=== PATIENT | male | born 1965 | race Caucasian/White ===

== ENCOUNTER → 2023-10-19 06:17 | Outpatient (REF) | payer BC, SELFPAY ==
[2023-10-19 08:06] LABS: HDL Cholesterol 99 mg/dl; LDL Cholesterol, Calculated 92 mg/dl; Total Cholesterol 205 mg/dl (50-199); Triglyceride 72 mg/dl (10-149); Very Low Density Lipoprotein 14 mg/dl (0-30)
== END ==
LOC: REG 06:17
PROVIDERS: ATTENDING PHYSICIAN Internal Medicine; FAMILY PHYSICIAN Family Medicine
DX: Q23.1 Congenital insufficiency of aortic valve (principal); I35.1 Nonrheumatic aortic (valve) insufficiency
CPT/HCPCS: 36415; 80061

== ENCOUNTER → 2024-07-11 06:20 | Outpatient (REF) | payer BC, SELFPAY ==
[2024-07-11 07:07] LABS: % Basophils 0.4 % (0-2); % Eosinophils 3.3 % (0-6); % Immature Granulocytes 0.4 % (0-0.5); % Lymphocytes 39.1 % (20.5-51.1); % Monocytes 13.2 % (1.7-9.3); % Neutrophils 43.6 % (42.2-75.2); Absolute Eosinophils 0.2 10^3/uL (0-0.7); Absolute Monocytes 0.7 10^3/uL (0.1-0.6); Absolute Neutrophils 2.3 10^3/uL (1.4-6.5); Hematocrit 39.2 % (39.0-52.0); Hemoglobin 13.8 g/dL (13.0-18.0); Mean Corp Hgb Conc. 35.2 g/dL (33.0-37.0); Mean Corpuscular Hgb 31.6 pg (27.0-31.0); Mean Corpuscular Volume 89.7 fL (80.0-94.0); Nucleated Red Blood Cells % 0 % (-); Platelet Count 253 10^3/uL (130-400); Red Blood Cell Count 4.37 10^6/uL (4.70-6.10); Red Cell Dist. Width 11.7 % (11.5-14.5); White Blood Cell Count 5.2 10^3/uL (4.8-10.8)
[2024-07-11 07:33] LABS: ALT (SGPT) 39 U/L (0-50); AST (SGOT) 24 U/L (17-59); Albumin 4.5 g/dl (3.5-5.0); Alkaline Phosphatase 54 U/L (38-126); Blood Urea Nitrogen 14 mg/dl (9-20); Calcium 9.3 mg/dl (8.4-10.2); Carbon Dioxide 29 mmol/L (22-30); Chloride 95 mmol/L (98-107); Glucose 96 mg/dl (70-99); HDL Cholesterol 84 mg/dl; LDL Cholesterol, Calculated 106 mg/dl; Potassium 4.4 mmol/L (3.5-5.1); Sodium 130 mmol/L (135-145); Total Bilirubin 0.7 mg/dl (0.2-1.3); Total Cholesterol 209 mg/dl (50-199); Total Protein 7.2 g/dl (6.3-8.2); Triglyceride 95 mg/dl (10-149); Very Low Density Lipoprotein 19 mg/dl (0-30); eGFR > 60.00
[2024-07-11 08:02] LABS: TSH 1.08 uIU/ml (0.47-4.68)
[2024-07-11 12:39] LABS: Glycohemoglobin (HgbA1c) 5.4 % (4.0-5.6)
== END ==
LOC: REG 06:20
PROVIDERS: ATTENDING PHYSICIAN Internal Medicine; FAMILY PHYSICIAN Family Medicine
DX: Q23.1 Congenital insufficiency of aortic valve (principal); I10 Essential (primary) hypertension; E78.00 Pure hypercholesterolemia, unspecified
CPT/HCPCS: 36415; 80053; 80061; 83036; 84443; 85025

== ENCOUNTER → 2024-07-15 14:59 | Outpatient (REF) | payer BC, SELFPAY | LOC: RAD 14:59 | PROVIDERS: ATTENDING PHYSICIAN Internal Medicine; FAMILY PHYSICIAN Family Medicine | DX: Q23.1 Congenital insufficiency of aortic valve (principal); I35.1 Nonrheumatic aortic (valve) insufficiency | CPT/HCPCS: 71260; Q9967 ==

== ENCOUNTER → 2024-07-16 07:03 | Outpatient (REF) | payer BC, SELFPAY | LOC: HWRCS 07:03 | PROVIDERS: ATTENDING PHYSICIAN Internal Medicine; FAMILY PHYSICIAN Family Medicine | DX: Q23.1 Congenital insufficiency of aortic valve (principal); I35.1 Nonrheumatic aortic (valve) insufficiency | CPT/HCPCS: 93306 ==

== ENCOUNTER 2024-11-08 06:06 | Emergency (ER) | payer BC, SELFPAY ==
[2024-11-08 06:10] VITALS: BP 146/86
--- NOTE | 2024-11-08 06:31 | ED.GENMED ---
History of Present Illness
General
Chief Complaint: Back Pain
Time Seen by Provider: 11/08/24 06:15
History of Present Illness
History of Present Illness:
59-year-old male presents the emergency department for evaluation of left-sided low back pain for the past 2 to 3 weeks but acutely worsening in the past 24 hours. Works in the [employer] and was able to make it through his entire day
yesterday with mild pain. Denies any radicular symptoms in the lower extremities or lower urinary tract voiding symptoms, denies any urinary incontinence or retention. Has taken Advil without relief. Denies any recent falls or trauma. No fevers
or chills. Past medical history includes hypertension, on 2 antihypertensives, not on any anticoagulants.
Review of Systems
Review of Systems
Allergies reviewed?: Yes
All Other Systems: ROS reviewed and negative except as documented in HPI and ROS
Phy Exam
Physical Exam
Physical Exam:
GEN: Well appearing, NAD, WDWN
HEENT: Oral mucosa moist, no scleral icterus
Cardiac: Regular rate
Lung: No respiratory distress, no tachypnea
MSK: No gross deformity or injuries. No midline lumbar spine tenderness. Mild reproducible tenderness to left paraspinous musculature. Lumbar range of motion is normal however elicits pain throughout both flexion and extension
Skin: Good color, no pallor or jaundice, no rashes
Neuro: AO x3, moves all extremities freely, bilateral lower extremity strength is 5 out of 5 in all reese, patellar reflexes 2+ bilaterally, sensation to light touch intact and symmetric bilaterally
Psych: Calm, cooperative
Course
Orders/Labs/Results
Orders:
Orders
11/08/24 06:28
Cyclobenzaprine HCl [Flexeril] 10 mg PO NOW STA
Ketorolac [Toradol] 30 mg IM NOW STA
Lidocaine [Lidocaine 4% Patch] 1 patch TOPICAL NOW STA
Apply Lidocaine patch(s) to:: L lumbar
CR Lumbar Spine Comp Min 4 Vw* Urgent
Comment:
Reason For Exam: low back pain
11/08/24 07:50
Oxycodone [Roxicodone] 5 mg PO NOW STA
11/08/24 08:05
Urinalysis Reflex To Culture Urgent
Date Specimen was Collected: 11/08/24
Time Specimen was Collected: 08:00
Urine Microscopic Reflex Cult Urgent
Abnormal Lab Results
11/08/24
08:05
Urine Ketones 3+ A
(Negative)
Ur Occult Blood Reflex 1+ A
(Negative)
Urine Bacteria (Reflex) Few A
(Negative)
Urine Albumin (Reflex) 1+ A
(Neg - Trace)
Vital Signs
Initial and Last Documented VS:
Initial Vital Signs
Pulse Resp BP Pulse Ox
52 20 146/86 97
11/08/24 06:10 11/08/24 06:10 11/08/24 06:10 11/08/24 06:10
Last Documented Vital Signs
Pulse Resp BP Pulse Ox
52 20 146/86 97
11/08/24 06:10 11/08/24 06:10 11/08/24 06:10 11/08/24 06:33
MDM/Problems Addressed
MDM/Problems Addressed:
59-year-old male presents with low back pain without radiculopathy. X-ray shows significant degenerative disc disease and arthritic changes. He has no urinary voiding symptoms or lower extremity paresthesias concerning for neurologic impingement.
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 No occasion for urgent MRI. Discussed supportive care and outpatient management
*Pulse Oximetry
SaO2: 97
Oxygen Mode of Delivery: Room air
Patient hypoxic: no
*Critical Care Note
Total Time (30-74mins, 75-104mins- exclusive of procedures): Not Applicable
Update Note
Update Note:
0745: Reevaluated patient, still reporting severe pain. Will check urinalysis to rule out hematuria to rule out stone for completeness, give oxycodone, likely pain due to severe degenerative disc disease in the low spine
ED Attending Note
-
Portions of this chart may have been created with voice recognition software.� Occasional wrong word or��sound alike� substitutions may have occurred due to the inherent limitations of voice recognition software.
Discharge Plan
Departure
Patient Disposition: Home (Routine Discharge)
Date of Disposition: 11/08/24
Time of Disposition: 08:31
Patient with high blood pressure during this ER visit?: No
Discharge Problem:
Low back pain
Instructions: Low Back Pain (DC)
Prescriptions:
New
methylprednisolone [Medrol (Shaq)] 4 mg tablets,dose pack
See Rx Instructions .ROUTE .COMPLEX Qty: 21 0RF
Rx Instructions:
orally per package directions
oxycodone 5 mg tablet
5 mg PO Q8H PRN (Reason: Pain) Qty: 10 0RF
No Action
multivitamin [Dor-Ahkjmi-Qnbew] 1 EACH tablet
1 ea PO DAILY
ascorbic acid (vitamin C) [Vitamin C] 1,000 MG tablet
1,000 mg PO DAILY
ibuprofen [Advil] 200 MG tablet
400 mg PO PRN (Reason: pain)
Referrals:
Artur Guerra MD [Active, Anesthesiology]
Venancio Arensa MD [Family Provider, Family Practice]
Interventions
Interventions:
*Risk Screen - Suicide Last Done: 11/08/24 06:10
*General Assessment Last Done: 11/08/24 06:10
*Neglect/Abuse Screening Last Done: 11/08/24 06:10
*ED- Fall Risk Assessment Last Done: 11/08/24 06:10
*ED COVID-19 Vaccine History Last Done: 11/08/24 06:10
*Nursing Disposition Last Done: 11/08/24 08:39
ED-Musculoskeletal Assessment Last Done: 11/08/24 08:06
Discharge Date and Time
Discharge Date/Time: 11/08/24 08:42
Print Language: SAMI
[2024-11-08] MEDS: FLEXERIL 10 MG PO (06:38)
[2024-11-08] MEDS: LIDOCAINE 4% PATCH 1 PATCH TOPICAL (06:38)
[2024-11-08] MEDS: TORADOL 30 MG IM (06:38)
[2024-11-08] MEDS: ROXICODONE 5 MG PO (08:02)
[2024-11-08 08:06] VITALS: BMI 25.9
[2024-11-08 08:17] LABS: Urine Albumin 1+ (Neg - Trace); Urine Bilirubin Negative (Negative); Urine Character Clear (Clear); Urine Color Yellow; Urine Glucose Negative (Negative); Urine Ketone 3+ (Negative); Urine Leukocyte Negative (Negative); Urine Nitrite Negative (Negative); Urine Occult Blood 1+ (Negative); Urine Specific Gravity 1.025 (<1.030); Urine Urobilinogen Negative (Neg - 1+)
[2024-11-08 08:25] LABS: Urine Mucus Few
[2024-11-08 08:26] LABS: Urine Squamous Cell 0-2 /LPF (Few)
[2024-11-08 08:27] LABS: Urine Bacteria Few (Negative); Urine Red Blood Cell 0-2 /HPF (0-2)
== END 2024-11-08 08:42 | disposition home or self-care (01) ==
LOC: EMR 06:06
PROVIDERS: Physician Assistant; EMERGENCY PHYSICIAN Emergency Medicine; FAMILY PHYSICIAN Family Medicine
DX: M54.50 Low back pain, unspecified (principal); I10 Essential (primary) hypertension; Z79.899 Other long term (current) drug therapy
CPT/HCPCS: 99283; 96372; 72110; 81003; 81015

== ENCOUNTER 2024-11-11 03:00 | Emergency (ER) | payer BC, SELFPAY ==
[2024-11-11 03:04] VITALS: BP 134/80
[2024-11-11 03:11] VITALS: BP 150/72
[2024-11-11 04:00] VITALS: BP 142/94
[2024-11-11] MEDS: DILAUDID 1 MG IV ×2 (04:22→05:46)
[2024-11-11 04:51] LABS: INR 0.94; PT 12.9 Sec (11.4-14.6)
--- NOTE | 2024-11-11 04:51 | ED.GENMED ---
History of Present Illness
General
Chief Complaint: Back Pain
Time Seen by Provider: 11/11/24 03:35
History of Present Illness
History of Present Illness:
59-year-old male with history of hypertension, hyperlipidemia, thoracic aortic aneurysm presenting to the emergency department for worsening back pain. Patient reports pain primarily to the left lower lumbar back. Denies any known inciting injury
or trauma. He does work with [employer]. He came to the hospital 11/08 for the same symptoms. At that time he had an x-ray that showed degenerative disc disease and was treated with steroids. He also was discharged on oxycodone, however reports that
none the modalities at home have been helping his pain. Denies issues with urination or defecation. Denies chest pain or difficulty breathing. Denies fever. Does note history of back issues in the past, however this feels worse. Denies
additional acute complaints.
Phy Exam
Physical Exam
Physical Exam:
General: Well-appearing, no clinical signs of dehydration, nontoxic. Uncomfortable secondary to pain
HEENT: protecting airway
Neck: appears supple
CV: Normal heart rate, regular rhythm
Resp: No accessory muscle use, no increased work of breathing, lungs clear to auscultation bilaterally
Abd: Soft and non-distended, no tenderness to palpation
Extremities: No deformities, no swelling. Focal tenderness to the left lumbar musculature. No midline tenderness.
Neuro: alert, no focal neurologic deficit
: deferred
Rectal: deferred
Psych: Normal affect
Skin: Intact
Course
Orders/Labs/Results
Orders:
Orders
11/11/24 03:55
Chest/Abd Angio w/wo Contrast CT [CT Chest/abd Angio W/wo Iv Con] Urgent
Comment:
Reason For Exam: severe lower back pain, hx thoracic aneurysm
HYDROmorphone [Dilaudid] 1 mg IV NOW STA
11/11/24 03:56
Electrocardiogram (*1) Stat
Reason for Study: Other
Other Reason for Exam: chest pain
EKG- Treatment ONCE
11/11/24 04:24
Complete Blood Count/With Diff Urgent
Comprehensive Metabolic Panel Urgent
PTT Urgent
Prothrombin Time Urgent
Troponin I Urgent
11/11/24 05:35
HYDROmorphone [Dilaudid] 1 mg IV NOW STA
Ketorolac [Toradol] 15 mg IV NOW STA
Abnormal Lab Results
11/11/24
04:24
RBC 4.63 L 10^6/uL
(4.70-6.10)
MCH 31.3 H pg
(27.0-31.0)
RDW 10.9 L %
(11.5-14.5)
Absolute Neuts (auto) 6.7 H 10^3/uL
(1.4-6.5)
Absolute Monos (auto) 0.8 H 10^3/uL
(0.1-0.6)
Lymphocytes % 17.5 L %
(20.5-51.1)
Sodium 126 L mmol/L
(135-145)
Chloride 93 L mmol/L
(98-107)
Carbon Dioxide 20 L mmol/L
(22-30)
Glucose 117 H mg/dl
(70-99)
Albumin 5.2 H g/dl
(3.5-5.0)
11/11/24 04:24
11/11/24 04:24
Vital Signs
Initial and Last Documented VS:
Initial Vital Signs
Temp Pulse Resp BP Pulse Ox
97.8 F 68 32 134/80 100
11/11/24 03:04 11/11/24 03:04 11/11/24 03:04 11/11/24 03:04 11/11/24 03:04
Last Documented Vital Signs
Temp Pulse Resp BP Pulse Ox
97.8 F 68 32 126/93 97
11/11/24 03:04 11/11/24 03:04 11/11/24 03:04 11/11/24 06:00 11/11/24 06:01
MDM/Problems Addressed
MDM/Problems Addressed:
59-year-old male with history of hypertension presenting for worsening lower back pain. Vital signs on arrival are significant for mild hypertension.
On exam patient is in no acute distress, however is moderately uncomfortable secondary to his pain. Patient is flushed, cannot find position of comfort. On review of patient's chart, imaging from June 2023 shows thoracic aortic aneurysm.
Patient's pain is reproducible on exam, so musculoskeletal back pain is likely diagnosis, however given his level of discomfort, hypotension on arrival, known aortic aneurysm -cannot safely rule out dissection. For this reason we will obtain
laboratory analysis and CT imaging of the chest/abdomen/pelvis. Dilaudid administered for pain. EKG nonischemic. Without present concern for ACS.
06:50 -patient CT is negative. Aneurysm has increased slightly in size, however without any component of dissection or rupture. Patient made aware of this finding. Labs are unremarkable. At this time suspect musculoskeletal component to
patient's pain. Pain has improved. Patient offered admission for pain control versus pain control outpatient. He would prefer to go home with outpatient orthopedic follow-up. Will prescribe muscle relaxer and pain medication. Strict return
precautions communicated and patient verbalized understanding.
*Pulse Oximetry
SaO2: 100
Oxygen Mode of Delivery: Room air
*EKG
Interpreted by ED Provider?: Yes
EKG Intrepretation Date: 11/11/24
EKG Intrepretation Time: 04:55
Interpretation: normal
Comparison EKG: no changes
Heart Rate: 58
Rate: bradycardiac
Rhythm: sinus
[place]: normal axis
Interval: normal interval
QRS Pattern: normal QRS
Ischemia: no ischemia
*Critical Care Note
Total Time (30-74mins, 75-104mins- exclusive of procedures): Not Applicable
ED Attending Note
-
Portions of this chart may have been created with voice recognition software.� Occasional wrong word or��sound alike� substitutions may have occurred due to the inherent limitations of voice recognition software.
Discharge Plan
Departure
Prescriptions:
No Action
multivitamin [Zyp-Vizuby-Ptvfp] 1 EACH tablet
1 ea PO DAILY
ascorbic acid (vitamin C) [Vitamin C] 1,000 MG tablet
1,000 mg PO DAILY
ibuprofen [Advil] 200 MG tablet
400 mg PO PRN PRN (Reason: pain)
methylprednisolone [Medrol (Shaq)] 4 mg tablets,dose pack
See Rx Instructions .ROUTE .COMPLEX Qty: 21 0RF
Rx Instructions:
orally per package directions
oxycodone 5 mg tablet
5 mg PO Q8H PRN (Reason: Pain) Qty: 10 0RF
milk thistle 200 mg Capsule
200 mg PO DAILY
amlodipine 5 mg Tablet
5 mg PO DAILY
lisinopril 5 mg Tablet
5 mg PO DAILY
rosuvastatin 5 mg Tablet
5 mg PO DAILY
mecobalamin (vitamin B12) [B12 Active] 1,000 mcg Tablet,Chewable
1,000 mcg PO DAILY
Referrals:
Venancio Arenas MD [Family Provider, Family Practice]
Interventions
Interventions:
*Risk Screen - Suicide Last Done: 11/11/24 03:40
*General Assessment Last Done: 11/11/24 03:39
*Neglect/Abuse Screening Last Done: 11/11/24 03:39
*ED- Fall Risk Assessment Last Done: 11/11/24 03:39
*ED COVID-19 Vaccine History Last Done: 11/11/24 03:39
ED- Cardiac Assessment Last Done: 11/11/24 05:07
ED-Musculoskeletal Assessment Last Done: 11/11/24 05:07
ED- Pulmonary Assessment Last Done: 11/11/24 05:07
Discharge Date and Time
Print Language: PORTUGUESE
[2024-11-11 04:52] LABS: APTT 23.5 Sec (23.4-35.0)
[2024-11-11 05:04] LABS: ALT (SGPT) 23 U/L (0-50); AST (SGOT) 21 U/L (17-59); Albumin 5.2 g/dl (3.5-5.0); Alkaline Phosphatase 53 U/L (38-126); Blood Urea Nitrogen 11 mg/dl (9-20); Calcium 9.8 mg/dl (8.4-10.2); Carbon Dioxide 20 mmol/L (22-30); Chloride 93 mmol/L (98-107); Glucose 117 mg/dl (70-99); Potassium 4.3 mmol/L (3.5-5.1); Sodium 126 mmol/L (135-145); Total Bilirubin 1.3 mg/dl (0.2-1.3); eGFR > 60.00
[2024-11-11 05:15] LABS: Troponin I < 0.012 ng/ml
[2024-11-11 05:16] LABS: % Basophils 0.1 % (0-2); % Immature Granulocytes 0.4 % (0-0.5); % Lymphocytes 17.5 % (20.5-51.1); % Monocytes 8.6 % (1.7-9.3); % Neutrophils 73.4 % (42.2-75.2); Absolute Lymphocytes 1.6 10^3/uL (1.2-3.4); Absolute Monocytes 0.8 10^3/uL (0.1-0.6); Absolute Neutrophils 6.7 10^3/uL (1.4-6.5); Hematocrit 39.4 % (39.0-52.0); Hemoglobin 14.5 g/dL (13.0-18.0); Mean Corp Hgb Conc. 36.8 g/dL (33.0-37.0); Mean Corpuscular Hgb 31.3 pg (27.0-31.0); Mean Corpuscular Volume 85.1 fL (80.0-94.0); Mean Platelet Volume 9.7 fL (7.4-10.4); Nucleated Red Blood Cells % 0 % (-); Platelet Count 296 10^3/uL (130-400); Red Blood Cell Count 4.63 10^6/uL (4.70-6.10); Red Cell Dist. Width 10.9 % (11.5-14.5); White Blood Cell Count 9.1 10^3/uL (4.8-10.8)
[2024-11-11 05:33] VITALS: BP 132/88
[2024-11-11] MEDS: TORADOL 15 MG IV (05:47)
[2024-11-11 06:00] VITALS: BP 126/93
[2024-11-11 07:00] VITALS: BP 121/85
== END 2024-11-11 07:32 | disposition home or self-care (01) ==
LOC: EMR 03:00
PROVIDERS: EMERGENCY PHYSICIAN Student in an Organized Health Care Education/Training Program; FAMILY PHYSICIAN Family Medicine
DX: M54.50 Low back pain, unspecified (principal); E78.5 Hyperlipidemia, unspecified; I10 Essential (primary) hypertension; I71.20 Thoracic aortic aneurysm, without rupture, unspecified
CPT/HCPCS: 96374; 96375; 96376; 99284; 71275; 74175; 80053; 84484; 85025; 85610; 85730; 93005; Q9967

== ENCOUNTER 2024-11-12 10:26 | Inpatient (IN) | payer BC, SELFPAY ==
[2024-11-11 16:20] VITALS: BP 133/87
[2024-11-11] MEDS: TORADOL 30 MG IV (23:04)
[2024-11-11] MEDS: DECADRON 10 MG IV (23:04)
[2024-11-11] MEDS: DILAUDID 1 MG IV (23:04)
[2024-11-11 23:07] VITALS: BP 137/95; BMI 29.1
--- NOTE | 2024-11-11 23:28 | ED.GENMED ---
History of Present Illness
General
Chief Complaint: Back Pain
Source: patient, previous radiology exam (Lumbar spine x-ray November 08 showing multilevel DJD. CTA chest abdomen pelvis showing ascending thoracic aortic aneurysm at 5 cm slightly increased in size from 4.7 cm but no evidence of dissection. No
abdominal aortic aneurysm. No kidney stone. Multilevel lumbar DJD.) and previous hospital records (Recent ED visits for very similar complaint November 08 and then again this morning)
Time Seen by Provider: 11/11/24 22:08
History of Present Illness
History of Present Illness:
This is a 59-year-old gentleman who has history of lumbar DJD with previous exacerbations and had initially done well with physical therapy 2013. More recently over the past several weeks he has had increased in low back pain primarily left low
back pain and was evaluated in this ED November 08 with severe left low back pain, not radiating. Lumbar spine x-rays revealed moderate multilevel DJD but no evidence of fracture. Discharged to home with Medrol Dosepak as well as a small prescription
for oxycodone 5 mg. He has continued with significant left low back pain, worsening over the past several days and was reevaluated in this ED this morning with severe left low back pain that radiates to his left lateral flank. He has known history
of thoracic aortic aneurysm and underwent CTA of the chest abdomen pelvis that showed ascending thoracic aortic aneurysm that 5 cm slightly increased in size from 4.7 cm previously but no evidence of dissection. No acute intra-abdominal process.
Note of multilevel lumbar DJD. Moderate improvement in pain after IV Dilaudid but continued with significant pain and was offered admission but declined at that time. He was discharged to home with prescription for Flexeril as well as Percocet for
which she took 1 of each at 3 PM. He has had no significant relief and left low back pain has worsening since.
He has not had a fever nor chills. No fall. No difficulty moving his bowels or bladder.
Low back pain is much worse with movement, improves mildly with lying still but he reports intermittent spasms of severe pain primarily left low back but radiates across his entire lower back.
His initial appointment with pain management is not until mid November.
Past History
Past History
ED Past Medical History: HTN and Other (Lumbar DJD)
ED Past Surgical History: Orthopedic (Right knee)
Social History
Tobacco: Non-smoker
Drug: None
Personal:
Living: with family
Employment: Employed
Family History
Family History: Other (Noncontributory)
Phy Exam
Physical Exam
Physical Exam:
GENERAL: 59-year-old gentleman appears his stated age, awake and alert, appears in moderate distress related to pain. Resistant to move and intermittently wincing in pain, intermittently hyperventilating.
EYE: pupils equal. anicteric
NECK: Supple, nontender, no meningismus, no significant adenopathy.
ENT: oral mucosa is moist. No rhinorrhea.
CARDIAC: Regular rate and rhythm. no murmur.
LUNGS: Clear breath sounds bilaterally, no acute respiratory distress, no wheezes/rales/rhonchi
ABDOMEN: Rotund,Soft, nondistended, without focal tenderness, no r/g, no cvat. normoactive BS.
BACK: No midline bony tenderness. Moderate tenderness left paralumbar region with palpable muscle spasm left paralumbar region. Straight leg raising mildly positive on the left. Moderately restricted truncal/lumbar range of motion related to pain.
NEUROLOGICAL: Alert and oriented x3, no focal neuro deficits. Motor strength is 5/5 bilaterally. Gross sensation is intact.
SKIN: Warm and dry, normal color, skin intact. No rash.
MUSCULOSKELETAL: No C/C/E. peripheral pulses are full and equal b/l. No palpable tenderness.
PSYCH: Moderately anxious related to pain. Cooperative.
Course
Orders/Labs/Results
Orders:
Orders
11/11/24 22:21
Dexamethasone Sod Phosphate [Decadron] 10 mg IV NOW STA
HYDROmorphone [Dilaudid] 1 mg IV NOW STA
Ketorolac [Toradol] 30 mg IV NOW STA
11/11/24 23:47
Acetaminophen 1000MG/100Ml [Ofirmev] 1,000 mg in 100 ml IV ONCE
Acetaminophen IV Indication:: ED Narcotic Naive Pt-ONCE
Lidocaine [Lidocaine 4% Patch] 1 patch TOPICAL NOW STA
Apply Lidocaine patch(s) to:: LEFT LOW BACK
11/12/24 00:22
Admit/Transfer Patient As Directed
Co-Sign Provider:
Level of Care: Observation services
Assign to:: Medical/Surgical
Physician / Group: David
Diagnosis: ambulatory dysfunction
PRN Pain Medication Management As Directed
May give lesser potent ordered pain med per pt: Yes
preference::
Protocol:: Medication orders for pain may be administered in a
manner that supports deferring to patient preference
when the pt is:
- Requesting an ordered lesser potent pain medication.
Least to most potent pain medications are defined
as: acetaminophen < NSAID < tramadol < opioids
(morphine, oxycodone, hydromorphone).
- Requesting a lesser dose of the same medication IF
ORDERED.
- Requesting a less intrusive route of administration
if both routes are prescribed by the provider (PO <
IV).
11/12/24 00:24
Code Status As Directed
Resuscitation Status: Full Code
Vital Signs
Initial and Last Documented VS:
Initial Vital Signs
Temp Pulse Resp BP Pulse Ox
98 F 80 16 133/87 99
11/11/24 16:20 11/11/24 16:20 11/11/24 16:20 11/11/24 16:20 11/11/24 16:20
Last Documented Vital Signs
Temp Pulse Resp BP Pulse Ox
98 F 67 15 128/88 89
11/11/24 16:20 11/12/24 00:26 11/12/24 00:26 11/12/24 00:00 11/12/24 00:15
MDM/Problems Addressed
Differential Diagnosis Includes:
Patient presents with ongoing, progressive, intractable low back pain. History of lumbar DJD with remote history of exacerbations over 10 years ago.
No previous instrumentation nor injections. No history of fever. No history of trauma.
No radicular signs or symptoms. No saddle anesthesia, no difficulty moving bowels or bladder thus at this point no indication for emergent MRI.
He is noted to have significant low back pain, appears moderately uncomfortable and at this point has clearly failed current outpatient medication management.
Will medicate for pain with IV Dilaudid, Toradol as well as an IV dose of Decadron.
Laboratory studies early this morning show mild hyponatremia, somewhat similar to previous June 2024. Otherwise labs are unremarkable. At this point no indication to repeat.
Chronic conditions affecting care: HTN and Other (Lumbar DJD)
Acute Exacerbation and/or Progression of Chronic Illness: Other (Lumbar DJD)
*Pulse Oximetry
SaO2: 100
Oxygen Mode of Delivery: Room air
Patient hypoxic: no
*Critical Care Note
Total Time (30-74mins, 75-104mins- exclusive of procedures): Not Applicable
ED Attending Note
-
Portions of this chart may have been created with voice recognition software.� Occasional wrong word or��sound alike� substitutions may have occurred due to the inherent limitations of voice recognition software.
Discharge Plan
Departure
Patient Disposition: Admit
Date of Disposition: 11/11/24
Time of Disposition: 23:53
Admit to: Med/Surg
Admit to doctor: David
Presentation/result/management discussed w/ accepting MD/DO: Hospitalist
Discharge Problem:
Intractable low back pain, acute exacerbation of lumbar DJD
Interventions
Interventions:
*Risk Screen - Suicide Last Done: 11/11/24 16:21
*Neglect/Abuse Screening Last Done: 11/11/24 16:21
ED-Musculoskeletal Assessment Last Done: 11/11/24 20:24
[2024-11-12] VITALS: BP 128/88
--- NOTE | 2024-11-12 00:04 | HPS.HSE ---
Family Physician
-
Family Physician: Venancio Arenas
Chief Complaint
-
Back pain
History of Present Illness
Patient is a 59-year-old with past medical history of low back pain with lumbar degenerative joint disease who presents to the emergency department with several weeks of increasing low back pain.
Patient has been dealing with this for several weeks now and was in the emergency department on November 08 for severe left low back pain that was nonradiating. X-rays at that time revealed multilevel DJD but no acute fractures dislocations noted. He
was discharged on medical management. He has continued to have low back pain worsening over the last few days. And now radiates to his lateral left flank. He denies any dysuria. He denies any materia. There has been no fevers or chills. There
is no incontinence of the bowel or bladder. There is no saddle anesthesia.
He denies any abdominal pain nausea vomiting or diarrhea.
Seen in the emergency department earlier today and had moderate improvement, was offered admission but decided to go home. He had continued pain and discomfort despite taking pain medications at home so he returned to the emergency department. He
reports intermittent spasms, severe pain primarily left low back. He has a pain
In the emergency department the patient was afebrile blood pressure was 157/90 with a pulse of 65 and she was satting at 100%.
CBC was unremarkable. Electrolytes notable for a sodium of 126 but otherwise electrolytes unremarkable. BUN/creatinine normal. Glucose normal.
CT chest abdomen pelvis with angiogram showing 5 cm ascending aortic fusiform aneurysm. Previously 4.7 cm. No abdominal aortic aneurysm. No aortic dissection. No pulmonary embolism. No evidence of pneumonia, pneumothorax, or effusion. No acute
inflammatory process within the abdomen or pelvis. No vertebral compression deformity.
Medical History
Past Medical History
Past Medical History: Reports Other
Additional Past Medical History:
TAA
Past Surgical History: Reports Other
Social History
Tobacco: Smoker
Alcohol: None
Drug: None
Employment: Not Employed
Family History
Family History: Not pertinent
Allergies / Home Medications
Allergies reflects when Allergies were last updated in [facility].
Home Medications with original date entered in [facility]
Allergy/Medication List:
Allergies
Allergy/AdvReac Type Severity Reaction Status Date / Time
Cephalosporins Allergy Rash Verified 11/11/24 03:05
gadobutrol (From Gadavist) Allergy Rash Verified 11/11/24 03:05
penicillin V Allergy Rash Verified 11/11/24 03:05
Penicillins Allergy Rash Verified 11/11/24 03:05
Home Medications
ascorbic acid (vitamin C) 1,000 mg tablet (Vitamin C) 1,000 mg PO DAILY 05/22/09
ibuprofen 200 mg tablet (Advil) 400 mg PO PRN PRN pain 05/22/09
multivitamin (Awb-Twwjvi-Xqlom tablet) 1 ea PO DAILY 05/22/09
methylprednisolone 4 mg tablets in a dose pack (Medrol (Shaq)) See Rx Instructions PO .COMPLEX #21 ea 11/08/24
oxycodone 5 mg tablet 5 mg PO Q8H PRN Pain #10 tabs 11/08/24
amlodipine 5 mg tablet 5 mg PO DAILY 11/11/24
cyclobenzaprine 10 mg tablet 10 mg PO TIDPRN PRN muscle spasm #15 tabs 11/11/24
lisinopril 5 mg tablet 5 mg PO DAILY 11/11/24
mecobalamin (vitamin B12) 1,000 mcg chewable tablet (B12 Active) 1,000 mcg PO DAILY 11/11/24
milk thistle 200 mg capsule 200 mg PO DAILY 11/11/24
oxycodone-acetaminophen 5 mg-325 mg tablet (Percocet) 1 tab PO Q8H PRN Pain #10 tabs 11/11/24
rosuvastatin 5 mg tablet 5 mg PO DAILY 11/11/24
Review of Systems
-
Constitutional: Reports No Symptoms
EENT: Reports No Symptoms
Respiratory: Reports No Symptoms
Cardiac: Reports No Symptoms
Abdomen/GI: Reports No Symptoms
: Reports No Symptoms
Musculoskeletal: Reports No Symptoms
Skin: Reports No Symptoms
Neurological: Reports No Symptoms
Endocrine: Reports No Symptoms
Hematologic/Lymphatic: Reports No Symptoms
Psych: Reports No Symptoms
Physical Exam
Vital Signs
Vital Signs
Temp Pulse Resp BP Pulse Ox
98 F 65 22 137/95 100
11/11/24 16:20 11/11/24 23:07 11/11/24 23:07 11/11/24 23:07 11/11/24 23:31
Physical Exam
General: Well Developed, Well Nourished and Pain
HEENT: NormoCephalic, Moist mucous membranes and Atraumatic
Respiratory: Clear
Cardiac: S1/S2 and Regular Rhythm; No Murmur or Rub
GI: Soft, Non Tender, Non Distended and Normal Bowel Sounds; No Organomegaly
Rectal: Deferred by Provider
Musculoskeletal: No Clubbing, No Cyanosis and No Edema
Skin: No Rash
Neuro: Nonfocal/grossly intact
Data Reviewed
-
CT Scan: Report Reviewed by me
Lab Data: Labs Reviewed by me
Old Records: Reviewed
Impression/Plan
-
IMPRESSION:
59-year-old with exacerbation of low back pain. History of known degenerative joint disease. He has no alarm findings. No radicular findings on history and physical examination.
PLAN:
LBP with ambulatory dysfunction
- admit to med/surg observation
- pain control with toradol and prn dilaudid
- topical agent
- continue medrol dose shaq
- PT evaluation
DVT PPX - SCDs
Code status - Full Code
[2024-11-12] MEDS: LIDOCAINE 4% PATCH 1 PATCH TOPICAL ×2 (00:05→21:00)
[2024-11-12] MEDS: OFIRMEV 100 IV (00:06)
[2024-11-12 01:12] VITALS: BP 128/86; BMI 28.1
--- NOTE | 2024-11-12 01:35 | PTCARENOTE ---
Rec'd pt from ER. Walked from stretcher to bed. complains of pain in left lower back. states it feels a bit better than earlier. NSS started at 125ml per order. oriented to room, call yusuf in reach
[2024-11-12] MEDS: NSS 1000 IV ×2 (01:47→08:24)
[2024-11-12] MEDS: TORADOL 10 MG IV ×2 (01:52→08:23)
[2024-11-12] MEDS: DILAUDID 0.5 MG IV ×2 (03:29→09:34)
[2024-11-12] MEDS: FLEXERIL 10 MG PO ×3 (05:26→21:00)
[2024-11-12] MEDS: MEDROL 4 MG PO ×4 (05:26→23:04)
[2024-11-12 07:10] VITALS: BP 132/85
[2024-11-12 08:02] LABS: Blood Urea Nitrogen 15 mg/dl (9-20); Calcium 9.1 mg/dl (8.4-10.2); Carbon Dioxide 20 mmol/L (22-30); Chloride 97 mmol/L (98-107); Estimated Creatinine Clearance 112 ml/min; Glucose 131 mg/dl (70-99); Potassium 4.5 mmol/L (3.5-5.1); Sodium 127 mmol/L (135-145); eGFR > 60.00
[2024-11-12] MEDS: ZESTRIL 5 MG PO (08:22)
[2024-11-12] MEDS: CRESTOR 5 MG PO (08:22)
[2024-11-12] MEDS: NORVASC 5 MG PO (08:22)
[2024-11-12] MEDS: ROXICODONE 5 MG PO (08:23)
--- NOTE | 2024-11-12 10:27 | W.PN.HOSP.TC ---
Today's Communication/Plan
-
See plan
Assessment / Plan
Assessment / Plan
Impression/plan
Severe lower back pain with ambulatory dysfunction suspect secondary to herniated disc.
Afebrile.
No focal findings on neurologic exam.
Normal white count.
Check MRI of the lumbar spine.
Analgesic control with oxycodone, Tylenol, Flexeril. Continue oral steroids
Physical therapy evaluation
Hyponatremia sodium 127.
Suspect SIADH in the settings of severe pain
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
Urine sodium
Urine osmolarity
TSH
Free water restriction
Stop IV fluids
Avoid NSAIDs
Essential hypertension.
Continue lisinopril and Norvasc
Bicuspid aortic valve
Aortic insufficiency.
CT angiogram in ED with findings of
Ascending thoracic aortic aneurysm measuring 5 cm, previous measuring 4.7 cm. No dissection. The heart is normal in size. Trace anterior pericardial effusion, slightly increased. Minimal fluid within superior pericardial recess, unchanged.
No acute findings.
Outpatient cardiology follow-up
Anticipated Discharge: 24 - 48 hours
Subjective/Interval History
-
Date of Service: November 12, 2024
Objective Data
-
Labs:
Laboratory Results
11/12/24
06:34
Sodium 127 L
Potassium 4.5
Chloride 97 L
Carbon Dioxide 20 L
BUN 15
Creatinine 0.7
Glucose 131 H
Calcium 9.1
Vital Signs:
Vital Signs
Temp Pulse Resp BP Pulse Ox
97.8 F 91 16 155/88 97
11/12/24 07:10 11/12/24 08:22 11/12/24 07:10 11/12/24 08:22 11/12/24 07:10
I&O
11/11/24 11/12/2411/13/25
06:59 06:59 06:59
Intake Total 240 / 240
Balance 240 / 240
Physical Exam
-
General: Well Developed and No Apparent Distress
HEENT: Normocephalic, Atraumatic and Moist Mucous Membranes
Respiratory: Clear to Auscultation
Cardiac: Regular Rhythm and S1/S2; Negative Murmur, Rub or Gallop
GI: Soft, Nontender, Nondistended and Normal Bowel Sounds; Negative Organomegaly
Rectal: Deferred by Provider
Musculoskeletal: No Clubbing, No Cyanosis and No Edema
Skin: Negative Rash
Neuro: Nonfocal/Grossly Intact
--- NOTE | 2024-11-12 10:48 | W.PN.HOSP.TC ---
Today's Communication/Plan
-
Interventional radiology for CLAUDIA
Continue current analgesic regimen
Continue corticosteroids
Monitor sodium
Free water restriction
Bowel regimen
Assessment / Plan
Assessment / Plan
Impression/plan
Severe lower back pain with ambulatory dysfunction suspect secondary to herniated disc.
Afebrile.
No focal findings on neurologic exam.
Normal white count.
MRI of the lumbar spine
Multilevel degenerative changes of the lumbar spine as detailed, worst at L4-5 where disc and facet disease contribute to moderate to severe spinal canal and neural foraminal stenosis at this level. Findings are slightly progressed compared to prior
remote exam 09/24/2013.
Pain remains persistent with severe ambulatory dysfunction
Consult interventional radiology for CLAUDIA
Analgesic control with oxycodone, Tylenol, Flexeril. Continue oral steroids
Physical therapy evaluation
Hyponatremia sodium 127.
Suspect SIADH in the settings of severe pain
Urine osmolarity at 300 consistent with high ADH state
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
TSH suppressed likely reflecting ongoing corticosteroid therapy
Urine sodium
Free water restriction
Stop IV fluids
Avoid NSAIDs
Essential hypertension.
Continue lisinopril and Norvasc
Bicuspid aortic valve
Aortic insufficiency.
CT angiogram in ED with findings of
Ascending thoracic aortic aneurysm measuring 5 cm, previous measuring 4.7 cm. No dissection. The heart is normal in size. Trace anterior pericardial effusion, slightly increased. Minimal fluid within superior pericardial recess, unchanged.
No acute findings.
Outpatient cardiology follow-up
Anticipated Discharge: 24 - 48 hours
Subjective/Interval History
-
Date of Service: November 12, 2024
Objective Data
-
Labs:
Laboratory Results
11/12/24
06:34
Sodium 127 L
Potassium 4.5
Chloride 97 L
Carbon Dioxide 20 L
BUN 15
Creatinine 0.7
Glucose 131 H
Calcium 9.1
Vital Signs:
Vital Signs
Temp Pulse Resp BP Pulse Ox
97.8 F 91 16 155/88 97
11/12/24 07:10 11/12/24 08:22 11/12/24 07:10 11/12/24 08:22 11/12/24 07:10
I&O
11/11/24 11/12/24 11/13/24
06:59 06:59 06:59
Intake Total 240 / 240
Balance 240 / 240
Physical Exam
-
General: Well Developed and No Apparent Distress
HEENT: Normocephalic, Atraumatic and Moist Mucous Membranes
Respiratory: Clear to Auscultation
Cardiac: Regular Rhythm and S1/S2; Negative Murmur, Rub or Gallop
GI: Soft, Nontender, Nondistended and Normal Bowel Sounds; Negative Organomegaly
Rectal: Deferred by Provider
Musculoskeletal: No Clubbing, No Cyanosis and No Edema
Skin: Negative Rash
Neuro: Nonfocal/Grossly Intact
[2024-11-12 11:51] LABS: TSH 0.24 uIU/ml (0.47-4.68)
[2024-11-12 12:05] VITALS: BP 134/90; PULSE 93; O2SAT 97
[2024-11-12 12:23] LABS: Urine Sodium 20 mmol/L (30-90)
[2024-11-12] MEDS: ROXICODONE 10 MG PO ×2 (12:25→18:02)
--- NOTE | 2024-11-12 14:49 | CM ---
Met with patient and his at bedside to obtain information for assessment. Patient stated that he lives with his in a two story house with two steps to enter. Patient is independent with his ADLs, personal care, dressing and bathing. He can
cook, clean, do principal process engineer, and do laundry. He drives and can get to his appointments and do his own shopping. Right now he is limited due to pain and his has been supportive when she is home. Patient has never had VN services. He has not
been to a SNF.
Patient has a prescription plan and uses, [facility] in [place] for all of her medications.
Patient's PCP is, Venancio Arenas.
Patient stated that he will most likely f/u with outpatient rehab when he is cleared for discharge as he is independent.
Plan: Case management will continue to follow and assist with discharge planning. Home with when stable.
[2024-11-12 15:00] VITALS: BP 113/77
[2024-11-12] MEDS: TYLENOL 1000 MG PO ×2 (16:29→21:00)
[2024-11-12 17:27] LABS: Osmolality Urine 306 mOsm/kg (300-900)
[2024-11-12] MEDS: SENOKOT-S 1 TABLET PO (22:22)
[2024-11-12 23:17] VITALS: BP 116/77
[2024-11-13] MEDS: MEDROL 4 MG PO ×3 (06:09→16:35)
[2024-11-13 07:25] VITALS: BP 129/86
[2024-11-13 08:11] LABS: Blood Urea Nitrogen 17 mg/dl (9-20); Calcium 8.9 mg/dl (8.4-10.2); Carbon Dioxide 22 mmol/L (22-30); Chloride 99 mmol/L (98-107); Estimated Creatinine Clearance 98 ml/min; Glucose 101 mg/dl (70-99); Potassium 4.3 mmol/L (3.5-5.1); Sodium 128 mmol/L (135-145); eGFR > 60.00
[2024-11-13] MEDS: TYLENOL 1000 MG PO ×3 (08:17→21:12)
[2024-11-13] MEDS: FLEXERIL 10 MG PO ×3 (08:17→21:12)
[2024-11-13] MEDS: CRESTOR 5 MG PO (08:17)
[2024-11-13] MEDS: SENOKOT-S 1 TABLET PO (08:17)
[2024-11-13] MEDS: NORVASC 5 MG PO (08:17)
[2024-11-13] MEDS: ZESTRIL 5 MG PO (08:17)
[2024-11-13] MEDS: MIRALAX 17 GRAMS PO (11:58)
[2024-11-13] MEDS: DILAUDID 0.5 MG IV (14:37)
[2024-11-13 15:20] VITALS: BP 127/82
[2024-11-13] MEDS: DULCOLAX 10 MG RECTAL (16:34)
[2024-11-13] MEDS: LIDOCAINE 4% PATCH TOPICAL (19:59)
[2024-11-13 23:37] VITALS: BP 131/89
[2024-11-14] MEDS: MEDROL 4 MG PO ×5 (00:02→23:08)
[2024-11-14] MEDS: TYLENOL 650 MG PO (05:25)
[2024-11-14 07:20] VITALS: BP 140/96
[2024-11-14 07:23] LABS: Blood Urea Nitrogen 16 mg/dl (9-20); Carbon Dioxide 24 mmol/L (22-30); Chloride 98 mmol/L (98-107); Estimated Creatinine Clearance 112 ml/min; Glucose 104 mg/dl (70-99); Potassium 4.7 mmol/L (3.5-5.1); Sodium 129 mmol/L (135-145); eGFR > 60.00
[2024-11-14] MEDS: FLEXERIL 10 MG PO ×3 (08:52→21:08)
[2024-11-14] MEDS: TYLENOL 1000 MG PO ×3 (08:52→21:09)
[2024-11-14] MEDS: ZESTRIL 5 MG PO (08:52)
[2024-11-14] MEDS: CRESTOR 5 MG PO (08:52)
[2024-11-14] MEDS: NORVASC 5 MG PO (08:52)
[2024-11-14] MEDS: FLUSH (NSS) 1 FLUSH IV (08:53)
--- NOTE | 2024-11-14 13:05 | PTCARENOTE ---
Pt transported to IR at this time.
[2024-11-14 13:15] VITALS: BP 146/104; BP_SYST 68
[2024-11-14 14:13] VITALS: BP 144/103
[2024-11-14 14:30] VITALS: BP 144/95
--- NOTE | 2024-11-14 14:30 | W.PN.HOSP.TC ---
Today's Communication/Plan
-
CLAUDIA today
Maintain current analgesic regimen
Bowel regimen
Sodium improved at 129
Continue free water restriction
BMP in a.m.
Assessment / Plan
Assessment / Plan
Impression/plan
Severe lower back pain with ambulatory dysfunction suspect secondary to herniated disc.
Afebrile.
No focal findings on neurologic exam.
Normal white count.
MRI of the lumbar spine
Multilevel degenerative changes of the lumbar spine as detailed, worst at L4-5 where disc and facet disease contribute to moderate to severe spinal canal and neural foraminal stenosis at this level. Findings are slightly progressed compared to prior
remote exam 09/24/2013.
Pain remains persistent with severe ambulatory dysfunction
Consult interventional radiology for CLAUDIA
Analgesic control with oxycodone, Tylenol, Flexeril. Continue oral steroids
Physical therapy evaluation
Hyponatremia sodium 127.
Suspect SIADH in the settings of severe pain
Urine osmolarity at 300 consistent with high ADH state
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
TSH suppressed likely reflecting ongoing corticosteroid therapy
Urine sodium
Free water restriction
Stop IV fluids
Avoid NSAIDs
Essential hypertension.
Continue lisinopril and Norvasc
Bicuspid aortic valve
Aortic insufficiency.
CT angiogram in ED with findings of
Ascending thoracic aortic aneurysm measuring 5 cm, previous measuring 4.7 cm. No dissection. The heart is normal in size. Trace anterior pericardial effusion, slightly increased. Minimal fluid within superior pericardial recess, unchanged.
No acute findings.
Outpatient cardiology follow-up
Anticipated Discharge: 24 - 48 hours
Subjective/Interval History
-
Date of Service: November 14, 2024
Objective Data
-
Labs:
Laboratory Results
11/14/24
06:28
Sodium 129 L
Potassium 4.7
Chloride 98
Carbon Dioxide 24
BUN 16
Creatinine 0.7
Glucose 104 H
Calcium 9.0
Vital Signs:
Vital Signs
Temp Pulse Resp BP Pulse Ox
97.9 F 65 16 144/103 100
11/14/24 13:15 11/14/24 14:13 11/14/24 14:13 11/14/24 14:13 11/14/24 13:15
I&O
11/13/24 11/14/24 11/15/24
06:59 06:59 06:59
Intake Total 1200 / 1200 840 / 840
Output Total 300 / 300
Balance 1200 / 1200 540 / 540
Physical Exam
-
General: Well Developed and No Apparent Distress
HEENT: Normocephalic, Atraumatic and Moist Mucous Membranes
Respiratory: Clear to Auscultation
Cardiac: Regular Rhythm and S1/S2; Negative Murmur, Rub or Gallop
GI: Soft, Nontender, Nondistended and Normal Bowel Sounds; Negative Organomegaly
Rectal: Deferred by Provider
Musculoskeletal: No Clubbing, No Cyanosis and No Edema
Skin: Negative Rash
Neuro: Nonfocal/Grossly Intact
--- NOTE | 2024-11-14 14:39 | PTCARENOTE ---
Received report from Odette in IR. Pt back to rm [id number], Pt [id number], stating that pain of low back is 5/10, tolerable for pt. Pt denies any numbness of legs. Bandaid to low, mid back, CDI. Pt verbalized that he will ring call yusuf for assist to
bathroom/to ambulate, call yusuf within reach.
[2024-11-14 15:30] VITALS: BP 150/94
[2024-11-14] MEDS: LIDOCAINE 4% PATCH TOPICAL (20:26)
[2024-11-14 22:55] VITALS: BP 132/91
[2024-11-15] MEDS: MEDROL 4 MG PO (06:06)
[2024-11-15 07:41] LABS: Blood Urea Nitrogen 15 mg/dl (9-20); Calcium 9.6 mg/dl (8.4-10.2); Carbon Dioxide 26 mmol/L (22-30); Chloride 96 mmol/L (98-107); Estimated Creatinine Clearance 112 ml/min; Glucose 116 mg/dl (70-99); Potassium 5.1 mmol/L (3.5-5.1); Sodium 130 mmol/L (135-145); eGFR > 60.00
[2024-11-15 07:45] VITALS: BP 113/81
[2024-11-15] MEDS: TYLENOL 1000 MG PO (08:25)
[2024-11-15] MEDS: ZESTRIL 5 MG PO (08:25)
[2024-11-15] MEDS: CRESTOR 5 MG PO (08:25)
[2024-11-15] MEDS: FLEXERIL 10 MG PO (08:25)
[2024-11-15] MEDS: NORVASC 5 MG PO (08:31)
[2024-11-15] MEDS: SENOKOT-S 1 TABLET PO (08:34)
--- NOTE | 2024-11-15 10:52 | W.DCSUMMARY ---
Discharge Summary
Discharge Data
Date of Admission: 11/12/24
Date of Discharge: 11/15/24
-
Pending Results: No
Hospital Course
Severe lower back pain with ambulatory dysfunction suspect secondary to herniated disc.
Afebrile.
No focal findings on neurologic exam.
Normal white count.
MRI of the lumbar spine
Multilevel degenerative changes of the lumbar spine as detailed, worst at L4-5 where disc and facet disease contribute to moderate to severe spinal canal and neural foraminal stenosis at this level. Findings are slightly progressed compared to prior
remote exam 09/24/2013.
Pain improved after CLAUDIA done on 11/14
Stop systemic steroids
Continue Tylenol and Flexeril
Patient has been trying to avoid opioids
Discharge home to follow-up with orthopedics/qi specialist as outpatient
Hyponatremia sodium 127.
Suspect SIADH in the settings of severe pain
Urine osmolarity at 300 consistent with high ADH state
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
TSH suppressed likely reflecting ongoing corticosteroid therapy
Urine sodium consistent with high ADH state secondary to pain
Sodium improved at 130.
Essential hypertension.
Continue lisinopril and Norvasc
Bicuspid aortic valve
Aortic insufficiency.
CT angiogram in ED with findings of
Ascending thoracic aortic aneurysm measuring 5 cm, previous measuring 4.7 cm. No dissection. The heart is normal in size. Trace anterior pericardial effusion, slightly increased. Minimal fluid within superior pericardial recess, unchanged.
No acute findings.
Outpatient cardiology follow-up
Discharge Plan
-
Patient Disposition: Home (Routine Discharge)
Discharge Diagnosis/Procedures: Low back pain
Lumbar spine DJD
Status post CLAUDIA
Euvolemic hyponatremia secondary to SIADH related to pain.
Condition: Good
Diet: Regular
Referrals:
Venancio Arenas MD [Family Provider, [facility]]
Prescriptions:
New
polyethylene glycol 3350 17 gram Powder In Packet
17 g PO DAILYPRN PRN (Reason: constipation) Qty: 30 0RF
acetaminophen [Tylenol Extra Strength] 500 mg Tablet
1,000 mg PO TID Qty: 60 0RF
Continued
oxycodone 5 mg tablet
5 mg PO Q8H PRN (Reason: Pain) Qty: 10 0RF
amlodipine 5 mg Tablet
5 mg PO DAILY
lisinopril 5 mg Tablet
5 mg PO DAILY
rosuvastatin 5 mg Tablet
5 mg PO DAILY
mecobalamin (vitamin B12) [B12 Active] 1,000 mcg Tablet,Chewable
1,000 mcg PO DAILY
cyclobenzaprine 10 mg tablet
10 mg PO TIDPRN PRN (Reason: muscle spasm) Qty: 15 0RF
Discontinued
oxycodone-acetaminophen [Percocet] 5-325 mg tablet
1 tab PO Q8H PRN (Reason: Pain) Qty: 10 0RF
Discharge Date and Time
Print Language: WELSH
[2024-11-15] MEDS: TYLENOL 650 MG PO (11:37)
[2024-11-15 13:42] VITALS: BP 137/83
== END 2024-11-15 13:44 | disposition home or self-care (01) | DRG 552 ==
LOC: 4 EAST ACU 10:26
PROVIDERS: Radiology Vascular & Interventional Radiology; ADMITTING PHYSICIAN Internal Medicine; ATTENDING PHYSICIAN Internal Medicine; EMERGENCY PHYSICIAN Emergency Medicine; FAMILY PHYSICIAN Family Medicine
PROC: 3E0R33Z Introduction of Anti-inflammatory into Spinal Canal, Percutaneous Approach (ICD-10-PCS; 2024-11-14)
DX: M54.59 Other low back pain (principal); E22.2 Syndrome of inappropriate secretion of antidiuretic hormone; F17.200 Nicotine dependence, unspecified, uncomplicated; I10 Essential (primary) hypertension; Q23.81 Bicuspid aortic valve
CPT/HCPCS: 62323; 72148; 80048; 83935; 84300; 84443; 96374; 96375; 97110; 97161; 99284

== ENCOUNTER → 2024-11-26 06:26 | Outpatient (REF) | payer BC, SELFPAY ==
[2024-11-26 07:17] LABS: Urine Character Clear (Clear)
[2024-11-26 07:18] LABS: Hematocrit 42.1 % (39.0-52.0); Hemoglobin 15.1 g/dL (13.0-18.0); Mean Corp Hgb Conc. 35.9 g/dL (33.0-37.0); Mean Corpuscular Volume 88.8 fL (80.0-94.0); Platelet Count 334 10^3/uL (130-400); Red Cell Dist. Width 11.0 % (11.5-14.5)
[2024-11-26 07:29] LABS: Urine Squamous Cell 0-2 /LPF (Few)
[2024-11-26 07:30] LABS: Urine White Cell 0-2 /HPF (0-5)
[2024-11-26 07:55] LABS: ALT (SGPT) 45 U/L (0-50); AST (SGOT) 19 U/L (17-59); Albumin 5.1 g/dl (3.5-5.0); Alkaline Phosphatase 38 U/L (38-126); Blood Urea Nitrogen 16 mg/dl (9-20); Calcium 9.9 mg/dl (8.4-10.2); Carbon Dioxide 26 mmol/L (22-30); Chloride 95 mmol/L (98-107); Glucose 107 mg/dl (70-99); Potassium 4.5 mmol/L (3.5-5.1); Sodium 130 mmol/L (135-145); Total Protein 7.8 g/dl (6.3-8.2); eGFR > 60.00
== END ==
LOC: REG 06:26
PROVIDERS: ATTENDING PHYSICIAN Family Medicine
DX: M54.50 Low back pain, unspecified (principal); E87.1 Hypo-osmolality and hyponatremia; I10 Essential (primary) hypertension
CPT/HCPCS: 36415; 80053; 81003; 81015; 85027

== ENCOUNTER 2024-12-17 07:06 | Outpatient (RCR) | payer BC, SELFPAY | END 2024-12-17 23:59 | disposition home or self-care (01) | LOC: RPT 07:06 | PROVIDERS: ATTENDING PHYSICIAN Internal Medicine; FAMILY PHYSICIAN Family Medicine | DX: M54.50 Low back pain, unspecified (principal); Z73.6 Limitation of activities due to disability | CPT/HCPCS: 97110; 97140; 97162; 97530 ==

== ENCOUNTER → 2024-12-19 13:51 | Outpatient (REF) | payer BC, SELFPAY ==
[2024-12-19 15:08] LABS: Urine Character Clear (Clear)
[2024-12-19 16:03] LABS: PSA, Total - Screen 0.70 ng/ml (0.0-4.0)
== END ==
LOC: REG 13:51
PROVIDERS: ATTENDING PHYSICIAN Specialist; FAMILY PHYSICIAN Family Medicine
DX: R31.21 Asymptomatic microscopic hematuria (principal); Z12.5 Encounter for screening for malignant neoplasm of prostate
CPT/HCPCS: 36415; 81003; G0103

== ENCOUNTER 2025-01-13 06:47 | Outpatient (RCR) | payer BC, SELFPAY | END 2025-01-13 23:59 | disposition home or self-care (01) | LOC: RPT 06:47 | PROVIDERS: ATTENDING PHYSICIAN Internal Medicine; FAMILY PHYSICIAN Family Medicine | DX: M54.50 Low back pain, unspecified (principal); Z73.6 Limitation of activities due to disability | CPT/HCPCS: 97110; 97112; 97140; 97530 ==